=== PATIENT | female | born 1980 | race Caucasian/White ===

== ENCOUNTER 2018-06-15 18:58 | Emergency (ER) | payer OTHER ==
[~2018-06-15] VITALS: Ht 170.2 cm; Wt 112.0 kg
[~2018-06-15 18:58] MED LIST: A/B OTIC15 ML; ACT30 PO; LANSOPRAZOLE30 M2 PO; LYRICA150 M1 PO; METFORMIN HCL1000 MG PO; PRILOSEC20 MG PO
[2018-06-15 19:08] VITALS: Ht 170.2 cm; Wt 112.0 kg
[2018-06-15 19:31] VITALS: BP 120/69
== END 2018-06-15 19:31 | disposition home or self-care (01) ==
LOC: ED 18:58
DX: S80.862A Insect bite (nonvenomous), left lower leg, initial encounter (principal); S80.861A Insect bite (nonvenomous), right lower leg, initial encounter; S40.862A Insect bite (nonvenomous) of left upper arm, initial encounter; S40.861A Insect bite (nonvenomous) of right upper arm, initial encounter; L03.116 Cellulitis of left lower limb; L03.115 Cellulitis of right lower limb; L03.114 Cellulitis of left upper limb; L03.113 Cellulitis of right upper limb; W57.XXXA Bitten or stung by nonvenomous insect and other nonvenomous arthropods, initial encounter; Y93.89 Activity, other specified; Y92.89 Other specified places as the place of occurrence of the external cause; Y99.8 Other external cause status; I10 Essential (primary) hypertension; E11.9 Type 2 diabetes mellitus without complications; M79.7 Fibromyalgia; Z90.49 Acquired absence of other specified parts of digestive tract; Z91.010 Allergy to peanuts

== ENCOUNTER 2018-09-30 08:49 | Emergency (ER) | payer OTHER ==
[~2018-09-30] VITALS: Ht 170.2 cm; Wt 109.3 kg
[2018-09-30 08:59] VITALS: BP 143/80; Ht 170.2 cm; Wt 109.3 kg
== END 2018-09-30 11:24 | disposition home or self-care (01) ==
LOC: ED 08:49
DX: J20.9 Acute bronchitis, unspecified (principal); I10 Essential (primary) hypertension; E11.9 Type 2 diabetes mellitus without complications; G89.29 Other chronic pain; M54.9 Dorsalgia, unspecified; K21.9 Gastro-esophageal reflux disease without esophagitis; M79.7 Fibromyalgia; Z90.49 Acquired absence of other specified parts of digestive tract

== ENCOUNTER 2019-06-02 19:34 | Emergency (ER) | payer OTHER ==
[~2019-06-02] VITALS: Ht 170.2 cm; Wt 112.0 kg
[2019-06-02 19:41] VITALS: Ht 170.2 cm; Wt 112.0 kg
[2019-06-02 20:11] VITALS: BP 139/84
== END 2019-06-02 20:11 | disposition home or self-care (01) ==
LOC: ED 19:34
DX: L03.116 Cellulitis of left lower limb (principal); I10 Essential (primary) hypertension; K21.9 Gastro-esophageal reflux disease without esophagitis; G89.29 Other chronic pain; Z90.49 Acquired absence of other specified parts of digestive tract; E11.9 Type 2 diabetes mellitus without complications; W57.XXXA Bitten or stung by nonvenomous insect and other nonvenomous arthropods, initial encounter; Y93.89 Activity, other specified; Y92.89 Other specified places as the place of occurrence of the external cause; Y99.8 Other external cause status

== ENCOUNTER 2019-08-28 10:33 | Emergency (ER) | payer OTHER ==
[~2019-08-28] VITALS: Ht 170.2 cm; Wt 115.2 kg
[2019-08-28 12:45] VITALS: BP 128/71
== END 2019-08-28 12:00 | disposition home or self-care (01) ==
LOC: ED 10:33
DX: J06.9 Acute upper respiratory infection, unspecified (principal); I10 Essential (primary) hypertension; E11.9 Type 2 diabetes mellitus without complications; K21.9 Gastro-esophageal reflux disease without esophagitis; G89.29 Other chronic pain; M54.9 Dorsalgia, unspecified; G56.00 Carpal tunnel syndrome, unspecified upper limb; Z90.49 Acquired absence of other specified parts of digestive tract; Z91.018 Allergy to other foods
CPT/HCPCS: Q0092

== ENCOUNTER 2020-06-30 19:28 | Emergency (ER) | payer OTHER ==
[~2020-06-30] VITALS: Ht 170.2 cm; Wt 110.7 kg
[2020-06-30 19:30] VITALS: Ht 170.2 cm; Wt 110.7 kg
[2020-06-30 22:45] VITALS: BP 142/88
== END 2020-06-30 22:53 | disposition home or self-care (01) ==
LOC: ED 19:28
DX: U07.1 COVID-19 (principal); I10 Essential (primary) hypertension; E11.9 Type 2 diabetes mellitus without complications; K21.9 Gastro-esophageal reflux disease without esophagitis; G56.00 Carpal tunnel syndrome, unspecified upper limb; Z90.49 Acquired absence of other specified parts of digestive tract; Z91.018 Allergy to other foods
CPT/HCPCS: Q0092

== ENCOUNTER 2020-09-01 19:35 | Emergency (ER) | payer OTHER ==
[~2020-09-01] VITALS: Ht 170.2 cm; Wt 113.4 kg
[2020-09-01 19:43] VITALS: Ht 170.2 cm; Wt 113.4 kg
[2020-09-01 22:40] VITALS: BP 131/70
== END 2020-09-01 22:40 | disposition home or self-care (01) ==
LOC: ED 19:35
DX: R07.89 Other chest pain (principal); M54.5 Low back pain; I10 Essential (primary) hypertension; E11.9 Type 2 diabetes mellitus without complications; G89.29 Other chronic pain; K21.9 Gastro-esophageal reflux disease without esophagitis; Z91.010 Allergy to peanuts